=== PATIENT | male | born 2000 | race Caucasian/White ===

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

== ENCOUNTER 2020-08-06 12:42 | Emergency (ER) | payer OTHER ==
[~2020-08-06] VITALS: Ht 170.2 cm; Wt 120.6 kg
[2020-08-06] MEDS ORDERED: FLUO40CA (12:51)
[2020-08-06] MEDS ORDERED: LIDOCAINE 2% MDV 20ML VIAL SC ONE (14:30)
[2020-08-06 15:10] VITALS: BP 122/61
[2020-08-06] MEDS ORDERED: BOOSTRIX/ADACEL VACCINE (DIPHTH/PERTUSS/ACELL/TETANUS) 0.5ML SYR IM ONE (15:30)
== END 2020-08-06 15:26 | disposition home or self-care (01) ==
LOC: M ED 12:42
DX: S61.211A Laceration without foreign body of left index finger without damage to nail, initial encounter (principal); W26.8XXA Contact with other sharp object(s), not elsewhere classified, initial encounter; Y92.9 Unspecified place or not applicable; Y99.0 Civilian activity done for income or pay; F41.9 Anxiety disorder, unspecified